=== PATIENT | female | born 1970 | race Caucasian/White ===

== ENCOUNTER 2024-04-09 11:11 | Outpatient (CLI) | payer BC, OTHER, SELFPAY | END 2024-04-09 11:12 | disposition home or self-care (01) | LOC: ANHSURGERY 11:21 | PROVIDERS: PCP Physician Assistant; Visit Provider Obstetrics & Gynecology | DX: Z01.812 Encounter for preprocedural laboratory examination (principal); Z14.8 Genetic carrier of other disease | CPT/HCPCS: 36415; 86850; 86900; 86901 ==

== ENCOUNTER 2024-04-16 00:39 | Day surgery (SDC) | payer BC, OTHER, SELFPAY ==
[2024-04-05 10:34] VITALS: BMI 54.9
--- NOTE | 2024-04-05 12:05 | PC.NURSE ---
Report to the Outpatient Waiting Room, entrance under the green pavilion located off [facility], at 1000 on 04-16-24. Planned Procedure Time: 1200. Time changes happen often and if your time is changed the preop area will call you the afternoon before. - You and your visitor will be asked to self-screen and do not enter if you have any COVID symptoms. - A mask is optional within the hospital at this time. Patients may have clear liquids (water, carbonated beverages, clear teas, apple juice) until 3 hours prior to surgery with a maximum of 20 ounces. 0900 - No food from midnight until time of surgery - Infants may have breast milk until 4 hours before surgery, formula 6 hours prior to surgery. - Children will be allowed to drink immediately following surgery. If applicable, please bring a bottle or sippy cup to assist with drinking. Juice, water, soda, and popsicles are readily available. For infants on formula, please bring formula the day of surgery. Pacifiers are allowed. Take the following medications with a SIP of water the morning of surgery: bupropion Bring inhaler to hospital day of surgery DO NOT STOP ANY OF YOUR OTHER PRESCRIPTION MEDICATIONS PRIOR TO SURGERY ?EXCEPT THE FOLLOWING Medications to discontinue per physician: Meloxicam Date to take last dose: Per Dr. Davis Please no make-up, nail bermudian, hairspray, perfume, deodorant, or body powder the day of surgery. No jewelry (including any body piercings) or valuables the day of surgery, leave them at home. Please take a shower or bath the night before, or the morning of, surgery with an antibacterial soap. Wear comfortable, loose fitting clothing. Children are encouraged to wear pajamas. - Jewelry must be removed prior to entering the operating room. Rings and piercings that are not removed may be cut off. - The hospital will not accept responsibility for valuables. - Please leave all valuables, including medications, at home the day of surgery. If you are going home after surgery, a licensed explosives truck driver must drive you home. - NO public transportation without another adult if you receive anesthesia. - We recommend that an adult stay with you for 24 hours following discharge. - We also recommend that you do not drive, make important decision, drink alcoholic beverages, or take any drugs that were not prescribed by your health care provider for at least 24 hours after your discharge time. For Pediatric surgeries, we recommend two adults accompany the child home. Follow any additional instructions given to you from your surgeon. If you or anyone in your household have experienced Covid symptoms in the past week, please notify your surgeon or the nurse liaison at the phone number below for possible testing. Telephone instructions given to Louise Zhong and asked if any additional questions and then verbalized understanding. Patient advised to call surgeon office or pre surgery nurse liaison [phone] if any additional questions.
[2024-04-16] VITALS (9 sets, daily range): BP systolic 102–120; BP diastolic 52–79; PULSE 65–79; RESP 10–20; TEMP 36.4–37.3; O2SAT 95–100
[2024-04-16] MEDS: LACTATED RINGERS 1,000 ML 30 ML IV CONT ×2 (06:58→09:44)
[2024-04-16] MEDS: KETOROLAC 15 MG/ML VIAL (*BKC) IV PUSH (06:59)
[2024-04-16] MEDS: ACETAMINOPHEN 500 MG TABLET 1000 MG PO (06:59)
--- NOTE | 2024-04-16 07:13 | WPDANESEPPF ---
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 Patient Data Age: 54 Gender: F Height: 1.63 m Weight: 141.5 kg Allergies Allergy/AdvReac Type Severity Reaction Status Date / Time amoxicillin Allergy Mild Nausea and Verified 04/16/24 06:09 Vomiting Home Medications Medication Instructions Recorded Confirmed Type albuterol sulfate 90 mcg/actuation 2 puff inhalation Q4-6H PRN 04/05/24 04/16/24 History aerosol inhaler Shortness Of Breath Or Wheezing bupropion HCl 300 mg 24 hr tablet, 300 mg PO DAILY 04/05/24 04/16/24 History extended release meloxicam 15 mg tablet 15 mg PO DAILY 04/05/24 04/16/24 History Patient hx anesthesia problems: none Family hx anesthesia problems: none Results Review: All pre-operative results and documents have been reviewed as part of the pre-operative evaluation. [facility] Social History Social History Smoking status: Never smoker Second hand tobacco smoke exposure: No Alcohol intake: current Drinks per week: 4 Alcohol use details: hard liquor mixed with juice/soda Substance use: never Substance use type: does not use Living arrangements: with family Spiritual care concerns: No Anes - Eval Final PreProcedure Day of Procedure 04/16/24 07:13 Patient weight: super morbidly obese Heart: regular rate and rhythm Lungs: clear to auscultation Airway: Mallampati scale class III Neurological: alert and oriented Last oral intake: >/= 8 hours ASA classification: III Emergent: no Anesthetic plan: proceed Anesthesia type and monitoring: general ETT and standard monitoring Results Review: All pre-operative results and documents have been reviewed as part of the pre-operative evaluation. Informed Consent: The patient's anesthetic plan and its attendant risks and benefits were discussed with the patient/family/POA. Questions were solicited and answers provided to the satisfaction of the patient/family/POA.
--- NOTE | 2024-04-16 07:25 | WPDHPUPDATE1 ---
History and Physical Update Update Date/Time: 04/16/24 07:25 History and Physical has been reviewed, including an updated exam of the patient. There are NO changes in the patient's condition. Risks, benefits, and alternatives have been discussed and questions answered. Patient agrees to proceed with procedure.
--- NOTE | 2024-04-16 07:26 | PM.IMHP ---
H&P: HPI History of Present Illness Date/Time: 04/16/24 07:26 Chief Complaint: female genital cancer risk Narrative: 54-year-old female with inherited family gene mutation with high risk for female genital cancer. we have agreed to proceed with total laparoscopic hysterectomy bilateral salpingo for The patient understands the details of the procedure. The procedure has been explained in detail. She understands the risks. She understands that injuries may occur that result in hospitalization, more surgery, and severe illness. She understands risk of hemorrhage and infection. She denies any chest pain or shortness of breath. She denies any nausea, vomiting, fever, chills. Review of Systems Review of Systems: All systems reviewed & are unremarkable except as noted in HPI and below Constitutional: Constitutional: Denies chills, Denies fatigue, Denies fever(s) and Denies weakness Eyes: Eyes: Denies blurry vision, Denies change in vision, Denies loss of peripheral vision, Denies loss of vision, Denies other visual disturbances and Denies eye pain ENT: Denies vertigo, Denies dizziness, Denies hearing loss, Denies mouth pain, Denies nasal obstruction, Denies neck mass and Denies neck pain Cardiovascular: Cardiovascular: Denies chest pain, Denies diaphoresis, Denies syncope, Denies leg edema and Denies dyspnea Respiratory: Respiratory: Denies chest congestion, Denies cough, Denies hemoptysis, Denies dyspnea and Denies wheezing Gastrointestinal: Gastrointestinal: Denies abdominal pain, Denies constipation, Denies diarrhea, Denies nausea and Denies vomiting Genitourinary: Genitourinary: Denies hematuria, Denies change in libido, Denies nocturia, Denies genital lesions, Denies flank pain and Denies urinary urgency Musculoskeletal: Musculoskeletal: Denies abnormal gait, Denies back pain, Denies myalgias, Denies arthralgias, Denies joint swelling, Denies muscle weakness and Denies neck pain Integumentary/Breasts: Skin/Breast: Denies swelling, Denies breast pain, Denies breast mass, Denies dry skin, Denies nipple discharge, Denies unusual bruising and Denies jaundice Neurologic: Denies Neuro-related abnormal movements, Denies Abnormal speech present, Denies abnormal gait, Denies behavioral changes, Denies confusion, Denies vertigo, Denies dizziness, Denies syncope, Denies loss of vision, Denies memory loss, Denies convulsions and Denies weakness Psychiatric: Psychiatric: Denies abnormal sleep pattern, Denies behavioral changes, Denies change in libido, Denies confusion, Denies depression, Denies anhedonia and Denies memory loss Endocrine: Endocrine: Reports no additional endocrine complaints, Denies change in libido and Denies fatigue Hematologic/Lymphatic: Hematologic/Lymphatic: Reports no additional hematologic/lymphatic complaints Allergic/Immunologic: Allergic/Immunologic: Reports no additional allergic/immunologic complaints and Denies wheezing PMFSH Social History Social History Smoking status: Never smoker Second hand tobacco smoke exposure: No Alcohol intake: current Drinks per week: 4 Alcohol use details: hard liquor mixed with juice/soda Substance use: never Substance use type: does not use Living arrangements: with family Spiritual care concerns: No Meds Home Medications and Allergies Home Medications Medication Instructions Recorded Confirmed Type albuterol sulfate 90 mcg/actuation 2 puff inhalation Q4-6H PRN 04/05/24 04/16/24 History aerosol inhaler Shortness Of Breath Or Wheezing bupropion HCl 300 mg 24 hr tablet, 300 mg PO DAILY 04/05/24 04/16/24 History extended release meloxicam 15 mg tablet 15 mg PO DAILY 04/05/24 04/16/24 History Allergies Allergy/AdvReac Type Severity Reaction Status Date / Time amoxicillin Allergy Mild Nausea and Verified 04/16/24 06:09 Vomiting Exam Const: General: cooperative, healthy appearing, comfortable and no acute distress Orientation/
[2024-04-16] MEDS: ceFAZolin 3 GM/D5W 100 ML 100 ML IVPB (07:38)
[2024-04-16] MEDS: ceFAZolin SODIUM 1 GM VIAL (08:19)
--- NOTE | 2024-04-16 09:54 | W.PM.PROC2 ---
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 Surgeon Todd Davis MD Anesthesia General Indications Cancer risk Findings Normal-appearing uterus tubes and ovaries. Description of Procedure This patient was taken to the operating room. She was prepped and draped in the dorsal lithotomy position after induction of general anesthesia. The uterine manipulator and Vinay cup were placed. This was done with a speculum and tenaculum. The speculum was placed. The cervix was grasped with a tenaculum. The stay sutures were placed at 3 and 9:00 a.m.. The stay sutures of 0 Vicryl were brought through the appropriately sized Vinay cup. The tip of the ELEN manipulator was placed in the intrauterine cavity. The cup was slid into place around the cervix and into the fornices. It was locked into place. The sutures were then wrapped around the handle and tied under tension. A 5 mm skin incision was made in the left upper quadrant the abdomen. A 5 mm trocar was inserted into the intrauterine cavity under direct visualization of the scope. Pneumoperitoneum was achieved. A left lower quadrant 11 mm incision was made with scalpel. An 11 mm trocar was inserted into the anterior abdominal cavity under direct visualization the scope. A 5 mm infraumbilical incision was made with a scalpel and a 5 mm trocar was inserted the intra-abdominal cavity under direct visualization of the scope. Bilateral ureteral lysis was performed. This was done from the pelvic brim down to the uterine artery. This was done with careful dissection using sharp and blunt dissection. The infundibulopelvic ligaments were isolated after identification of the ureters bilaterally. These infundibulopelvic ligaments were cauterized and transected with LigaSure cautery. The para ovarian tissue was cauterized and transected with LigaSure cautery bilaterally. Moving around the ovary into the broad ligament the tissue was cauterized transected with LigaSure cautery. The round ligaments were cauterized transected with LigaSure cautery this was all done in a bilateral fashion. In a stepwise fashion along the lateral aspects of the uterus the round ligament and broad ligaments were cauterized transected down to the level of the uterine arteries. A bladder flap was created in the bladder was moved distally to the end of the cervix and over the Vinay cup. The bilateral uterine arteries were cauterized and transected. Colpotomy was then performed. In a circumferential fashion the vagina was transected using unipolar cautery. The incision was made down on the Vinay cup. The uterus, cervix, fallopian tubes and ovaries were taken out through the vagina. A pneumo occluder was placed in the vagina. The vaginal cuff was closed with a 0 V lock suture in a running fashion. The pelvis was irrigated with copious amounts antibiotic irrigation. The ureters were again examined and found to be intact and flowing freely under the uterine arteries into the bladder. Cystoscopy was performed. The cystoscope was inserted in the ureteral orifices were examined. methylene blue had been previously given was seen to egress from both ureteral orifices. The bladder was intact . The cystoscope was withdrawn. The vagina was irrigated with Betadine solution after removal of the Pneumo occluder. The patient was taken to recovery room. She was stable condition. Sponge lap and needle counts were correct x2. Drains Yes Packing No Pathology Yes Complications No immediate complications Condition Stable Disposition Floor
[2024-04-16] MEDS: fentaNYL CITRATE INJ (*CRX) 100 MCG/2 ML VIAL 25 MCG IV PUSH ×2 (09:58→10:29)
--- NOTE | 2024-04-16 10:42 | OBPPTRN ---
Patient transferred to post room #289 via stretcher. Support person present. Oriented to unit, room, information board and admission packet. Patient verbalizes understanding.
[2024-04-16] MEDS: KETOROLAC 30 MG/ML VIAL (*BKC) IV PUSH ×2 (10:52→20:49)
[2024-04-16] MEDS: DEXTROSE 5%/0.45% SOD CHL 1,000 ML 125 ML IV CONT (10:52)
[2024-04-16] MEDS: HYDROcodone/acetaminophen (*CRX) 10-325 MG TABLET 1 TAB PO ×4 (11:53→23:59)
[2024-04-16] MEDS: SIMETHICONE 80 MG TAB.CHEW PO ×2 (14:41→17:56)
[2024-04-17 04:00] VITALS: BP 132/78; PULSE 64; RESP 16; TEMP 37.1; O2SAT 96
[2024-04-17] MEDS: KETOROLAC 30 MG/ML VIAL (*BKC) IV PUSH (04:00)
[2024-04-17] MEDS: HYDROcodone/acetaminophen (*CRX) 10-325 MG TABLET 1 TAB PO ×2 (07:41→11:41)
[2024-04-17] MEDS: SIMETHICONE 80 MG TAB.CHEW PO (07:42)
[2024-04-17] MEDS: buPROPion HCL XL (24 HR) 150 MG TABCR 300 MG PO (07:42)
[2024-04-17 07:44] VITALS: BP 105/55; PULSE 74; RESP 18; TEMP 36.7; O2SAT 95
--- NOTE | 2024-04-17 10:37 | WPDANESPN ---
Anes - Prog Note Post-Op Date/Time: 04/17/24 10:37 Cardiovascular status: normal Respiratory status: normal Airway patency: baseline Mental status: baseline Post-Op hydration status: normal Vital Signs: Last Vital Signs Temp 36.7 C 04/17/24 07:44 Pulse 74 04/17/24 07:44 Resp 18 04/17/24 07:44 BP 105/55 L 04/17/24 07:44 Pulse Ox 95 04/17/24 07:44 O2 Del Method Room Air 04/17/24 07:44 O2 Flow Rate 2 04/16/24 11:10 Pain Score (VAS): 3/10 Post-procedural complaints: none Patient Feedback: Patient satisfied with anesthetic care.
--- NOTE | 2024-04-17 10:54 | PM.GYNPNOP ---
RN HEMATOLOGY - A/P Postoperative Procedures: Procedures Operation Date: 04/16/24 07:30 Actual Procedure Side Surgeon p Total Laparoscopic Hysterectomy with Bilateral Salpingo-oophorectomy Bilateral Todd Davis MD Postoperative day: 1 Postoperative status: doing well and other (Tollerating Regular Diet) Postoperative plan: routine post-op care and discharge Time Spent With Patient Time: Total time spent is greater than 50% in coordination of care (as documented) at patient's floor/unit and/or counseling patient: Time with patient: 15 - 25 minutes RN HEMATOLOGY- PN:Subj Post-Op Subjective Date/time seen: 04/17/24 10:54 Subjective: patient reports feeling better, pain is well controlled and patient is tolerating oral intake Exam Const: General: cooperative, healthy appearing, comfortable and no acute distress Resp: Auscultation: no crackles, no rales, no rhonchi and no wheezes Cardio: Rhythm: regular rhythm Heart sounds: no click and no murmurs GI: Inspection: non-distended Auscultation: normal bowel sounds Other: Incisions - CDI Extrem: General: normal to inspection, no pedal edema and no calf tenderness RN HEMATOLOGY - PN: Obj Data Vital Signs Vital Signs: Vital Signs - 24 hr 04/16/24 11:03 04/16/24 11:10 04/16/24 16:10 Temperature 97.6 F Pulse Rate 66 66 Respiratory Rate 20 20 Blood Pressure 120/71 Pulse Oximetry 99 99 Oxygen Delivery Nasal Cannula Room Air Oxygen Flow Rate 2 04/16/24 16:10 04/16/24 20:38 04/16/24 20:38 Temperature 98.8 F 99.2 F 99.2 F Pulse Rate 65 71 71 Respiratory Rate 16 18 18 Blood Pressure 110/64 102/53 L 102/53 L Pulse Oximetry 95 96 96 Oxygen Delivery Room Air Oxygen Flow Rate 04/17/24 04:00 04/17/24 07:44 04/17/24 07:44 Temperature 98.8 F 98.0 F Pulse Rate 64 74 Respiratory Rate 16 18 Blood Pressure 132/78 105/55 L Pulse Oximetry 96 95 Oxygen Delivery Room Air Oxygen Flow Rate Intake/Output Intake/Output: Intake & Output 04/14/24 04/15/24 04/16/24 04/17/24 23:59 23:59 23:59 23:59 Intake Total 400 Output Total 975 Balance -575 Meds/Results Medications: Active Medications Generic Name Dose Route Start Last Admin Trade Name Freq PRN Reason Stop Dose Admin Hydrocodone Bitart/Acetaminophen 1 tab 04/16/24 10:34 Hydrocodone/Acetaminophen (*Crx) 5-325 Mg Tablet PO Q3H PRN Pain Rated 5 or Less Hydrocodone Bitart/Acetaminophen 1 tab 04/16/24 10:34 04/17/24 07:41 Hydrocodone/Acetaminophen (*Crx) 10-325 Mg Tablet PO 1 tab Q3H PRN Administration Pain Rated 6 or Greater Albuterol 2 puff 04/16/24 10:34 Albuterol Sulfate (*Sp) Aerosol 1 Puff INHALATION Q4-6H PRN Shortness Of Breath Or Wheezing Bupropion HCl 300 mg 04/17/24 09:00 04/17/24 07:42 Bupropion Hcl Xl (24 Hr) 150 Mg Tabcr PO 300 mg DAILY JAJA Administration Dextrose/Sodium Chloride 1,000 mls @ 125 mls/hr 04/16/24 10:34 04/16/24 10:52 Dextrose 5% Sodium Chloride 0.45% IV CONT 125 mls/hr .Q8H JAJA Administration Ibuprofen 600 mg 04/16/24 10:34 Ibuprofen 600 Mg Tablet PO Q6H PRN Cramping Ketorolac Tromethamine 30 mg 04/16/24 10:34 04/17/24 04:00 Ketorolac 30 Mg/Ml Vial (*Bkc) IV PUSH 04/21/24 10:33 30 mg Q6H PRN Administration Pain Rated 4-6 Naloxone HCl 0.1 mg 04/16/24 10:34 Naloxone Hcl 0.4 Mg/Ml Vial IV PUSH Q2M PRN Respiratory rate less than 10 Ondansetron HCl 4 mg 04/16/24 10:34 Ondansetron Inj 4 Mg/2 Ml Vial IV PUSH Q6H PRN Nausea And Vomiting Simethicone 80 mg 04/16/24 12:00 04/17/24 07:42 Simethicone 80 Mg Tab.Chew PO 80 mg TIDWM JAJA Administration
[2024-04-17] MEDS: IBUPROFEN 600 MG TABLET PO (11:42)
--- NOTE | 2024-04-17 15:25 | PC.NURSE ---
0781 Pt stated that she takes her Wellbutrin earlier than 0900. So it was given.
== END 2024-04-17 11:55 | disposition home or self-care (01) ==
LOC: ANHSURGERY 05:53 → ANHOB2 10:59
PROVIDERS: PCP Physician Assistant; Visit Provider Obstetrics & Gynecology
PROC: 0UT9FZZ Resection of Uterus, Via Natural or Artificial Opening With Percutaneous Endoscopic Assistance (ICD-10-PCS; CPT 58571; principal; 2024-04-16 07:30)
DX: Z40.09 Encounter for prophylactic removal of other organ (principal); Z14.8 Genetic carrier of other disease; N72 Inflammatory disease of cervix uteri; N85.8 Other specified noninflammatory disorders of uterus; E66.01 Morbid (severe) obesity due to excess calories; Z68.43 Body mass index [BMI] 50.0-59.9, adult
CPT/HCPCS: 58571; 88302; 88305; 88307; 99199; A9270; J0690; J1100; J1170; J1200; J1885; J2250; J2405; J2704; J3010; J7030; J7120; Q9968